=== PATIENT | male | born 1995 | race Caucasian/White ===

== ENCOUNTER 2020-03-04 03:20 | Emergency (ER) | payer BC ==
[~2020-03-04] VITALS: Ht 175.3 cm; Wt 90.9 kg
[2020-03-04 03:21] VITALS: BP 129/87
[2020-03-04] MEDS ORDERED: acetaminophen 325mg tablet PO ONE (04:15)
[2020-03-04] MEDS ORDERED: TETanus/Pertussis (Acell)/Diphther VAC/PF (Tdap-Adult) 0.5ml syringe IMVAC ONE (04:15)
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
--- NOTE | 2020-03-04 05:01 | NUR ---
Pt departed after extensive advice from [facility] to receive all recommended evaluations and treatment
== END 2020-03-04 05:46 | disposition left against medical advice (07) ==
LOC: ER 03:21
DX: S00.10XA Contusion of unspecified eyelid and periocular area, initial encounter (principal); S00.531A Contusion of lip, initial encounter; S00.532A Contusion of oral cavity, initial encounter; F12.90 Cannabis use, unspecified, uncomplicated; F14.90 Cocaine use, unspecified, uncomplicated; Z72.89 Other problems related to lifestyle; Y09 Assault by unspecified means; Y93.89 Activity, other specified; Y92.89 Other specified places as the place of occurrence of the external cause; Y99.8 Other external cause status
CPT/HCPCS: 90715; 99284

== ENCOUNTER 2020-12-21 22:33 | Emergency (ER) | payer BC, MEDICAID ==
[~2020-12-21] VITALS: Ht 172.7 cm; Wt 95.0 kg
[2020-12-21] MEDS ORDERED: ibuprofen tablet 400 MG TABLET PO STA (22:54)
[2020-12-21 23:28] VITALS: BP 139/98
== END 2020-12-22 00:24 | disposition home or self-care (01) ==
LOC: ER 22:33
DX: S90.01XA Contusion of right ankle, initial encounter (principal); F12.90 Cannabis use, unspecified, uncomplicated; F14.90 Cocaine use, unspecified, uncomplicated; Z72.89 Other problems related to lifestyle; Y04.8XXA Assault by other bodily force, initial encounter; Y93.89 Activity, other specified; Y92.89 Other specified places as the place of occurrence of the external cause; Y99.8 Other external cause status
CPT/HCPCS: 73610; 73630; 99284

== ENCOUNTER 2022-09-19 18:12 | Emergency (ER) | payer MEDICAID, SELFPAY ==
[~2022-09-19] VITALS: Ht 172.7 cm; Wt 70.5 kg
[2022-09-19 18:54] VITALS: BP 120/78
== END 2022-09-19 20:14 | disposition home or self-care (01) ==
LOC: ER 18:13
DX: R07.9 Chest pain, unspecified (principal); R51.9 Headache, unspecified; F12.10 Cannabis abuse, uncomplicated; I51.9 Heart disease, unspecified
CPT/HCPCS: 99281